=== PATIENT | female | born 1985 | race Caucasian/White ===

== ENCOUNTER 2025-01-15 23:55 | Emergency (ER) | payer OTHER ==
[~2025-01-15] VITALS: Ht 162.6 cm; Wt 59.0 kg
[2025-01-16 00:01] VITALS: BP 96/61
[2025-01-16] MEDS ORDERED: METH4TAB3 PO (01:01)
[2025-01-16] MEDS ORDERED: IPRA42SP NS (01:01)
[2025-01-16 01:13] VITALS: BP 100/62; O2SAT 98
== END 2025-01-16 01:14 | disposition home or self-care (01) ==
LOC: ER 23:55
DX: R05.9 Cough, unspecified (principal); B97.89 Other viral agents as the cause of diseases classified elsewhere; J98.8 Other specified respiratory disorders
CPT/HCPCS: 71046; A4606; A4663